=== PATIENT | female | born 1980 | race Caucasian/White ===

== ENCOUNTER 2018-03-30 05:49 | Day surgery (SDC) | payer OTHER ==
[2018-03-30] MEDS: LACTATED RINGER'S 1,000 ML IV (06:47)
[2018-03-30] MEDS ORDERED: BACITRACIN/POLYMYXIN 28.35 GM OINT TOP (07:23)
[2018-03-30] MEDS ORDERED: ROPIVACAINE 0.5 % 30 ML VIAL ×2 (07:23→08:49)
[2018-03-30] MEDS ORDERED: MIDAZOLAM 1 MG/ML 2 ML INJ (07:32)
[2018-03-30] MEDS ORDERED: ROCURONIUM 50 MG INJ (07:45)
[2018-03-30] MEDS ORDERED: PROPOFOL 20 ML (07:45)
[2018-03-30] MEDS ORDERED: METOCLOPRAMIDE 10 MG INJ (07:45)
[2018-03-30] MEDS ORDERED: ONDANSETRON 4 MG INJ (07:45)
[2018-03-30] MEDS ORDERED: CEFAZOLIN 1 GM INJ (07:54)
[2018-03-30] MEDS ORDERED: morphine 2 MG INJ IV (08:00)
[2018-03-30] MEDS ORDERED: DIPHENHYDRAMINE 50 MG INJ IV (08:30)
[2018-03-30] MEDS: ROPIVACAINE 0.5 % 30 ML VIAL (08:30)
[2018-03-30] MEDS ORDERED: HYDROmorphONE 1 MG/5 ML IV SYRINGE IV (08:30)
[2018-03-30] MEDS ORDERED: MEPERIDINE 25 MG INJ IV (08:30)
[2018-03-30] MEDS ORDERED: OXYCODONE/ACETAMINOPHEN (5/325) TAB PO (08:30)
[2018-03-30] MEDS: HEPARIN 1000 UNITS/ML 10 ML INJ (08:31)
[2018-03-30] MEDS: POLYMYXIN/BACITRACIN 1L IRRIG ×2 (10:28→13:31)
[2018-03-30] MEDS ORDERED: EPHEDrine SULFATE 50 MG/5 ML SYG (10:53)
[2018-03-30] MEDS: HYDROmorphONE 1 MG/5 ML IV SYRINGE IV ×2 (12:35→12:46)
[2018-03-30] MEDS: ONDANSETRON 4 MG INJ IV (12:47)
[2018-03-30] MEDS: OXYCODONE/ACETAMINOPHEN (5/325) TAB PO (14:39)
== END 2018-03-30 15:40 | disposition home or self-care (01) ==
LOC: SDS 05:49
DX: T84.84XA Pain due to internal orthopedic prosthetic devices, implants and grafts, initial encounter (principal); Y79.3 Surgical instruments, materials and orthopedic devices (including sutures) associated with adverse incidents
CPT/HCPCS: 20680; 73630; 82306; 88300

== ENCOUNTER 2018-04-01 14:39 | Emergency (ER) | payer OTHER ==
[2018-04-01] MEDS: ONDANSETRON (ODT) 4 MG TAB ODT (16:08)
== END 2018-04-01 17:17 | disposition home or self-care (01) ==
LOC: FTE 14:39
DX: K91.89 Other postprocedural complications and disorders of digestive system (principal); R11.0 Nausea
CPT/HCPCS: 99283; Z7502